=== PATIENT | female | born 1985 | race Caucasian/White ===

== ENCOUNTER 2017-04-29 20:10 | Emergency (ER) | payer SELFPAY ==
[~2017-04-29] VITALS: Ht 162.6 cm; Wt 76.2 kg
[2017-04-29 20:40] VITALS: Ht 162.6 cm; Wt 76.2 kg
[2017-04-30 00:36] VITALS: BP 123/73
== END 2017-04-30 00:36 | disposition home or self-care (01) ==
LOC: ED 20:10
DX: M54.42 Lumbago with sciatica, left side (principal); I10 Essential (primary) hypertension; E11.9 Type 2 diabetes mellitus without complications; E78.00 Pure hypercholesterolemia, unspecified
CPT/HCPCS: J1885; J2270; Q0162

== ENCOUNTER 2018-05-18 21:54 | Emergency (ER) | payer OTHER ==
[~2018-05-18] VITALS: Ht 165.1 cm; Wt 75.3 kg
[2018-05-19 00:52] VITALS: BP 142/95
== END 2018-05-19 00:52 | disposition home or self-care (01) ==
LOC: ED 21:54
DX: E11.40 Type 2 diabetes mellitus with diabetic neuropathy, unspecified (principal); I10 Essential (primary) hypertension; E78.00 Pure hypercholesterolemia, unspecified
CPT/HCPCS: J1885

== ENCOUNTER 2020-03-31 15:24 | Emergency (ER) | payer OTHER ==
[~2020-03-31] VITALS: Ht 162.6 cm; Wt 78.5 kg
[2020-03-31 15:43] VITALS: Ht 162.6 cm; Wt 78.5 kg
[2020-03-31 18:11] VITALS: BP 132/89
== END 2020-03-31 18:11 | disposition home or self-care (01) ==
LOC: ED 15:24
DX: M54.5 Low back pain (principal); I10 Essential (primary) hypertension; E11.65 Type 2 diabetes mellitus with hyperglycemia; E78.00 Pure hypercholesterolemia, unspecified
CPT/HCPCS: 82962; J1885